=== PATIENT | male | born 1995 | race Caucasian/White ===

== ENCOUNTER 2020-12-06 13:16 | Outpatient (CLI) | payer BC, SELFPAY ==
--- NOTE | 2020-12-06 13:40 | MR_ITS ---
WS: [id number] MRI LEFT KNEE NONCONTRAST TECHNIQUE: Axial PD, coronal PD fat sat, coronal PD, sagittal PD, and sagittal PD fat-sat images obta ined. CLINICAL INFORMATION: LEFT KNEE PAIN/LEFT KNEE EFFUSION COMPARISON: None. FINDINGS: Distal quadriceps and patella tendons are intact. Hypertrophic patella. High-grade complete tear of t he anterior cruciate ligament. No normal fibers visualized. Normal posterior cruciate ligament. Diffu se edema consistent with contusion involving the posterior medial and posterior lateral tibial platea u. Normal lateral meniscus. Tiny horizontal tear involving the posterior horn medial meniscus extendi ng to the articular surface. Additional chronic intrasubstance signal abnormality in the posterior ho rn medial meniscus. Medial and lateral collateral ligaments are intact. Normal bone marrow signal in the femoral condyles . Lobulated popliteal cyst measuring 1.3 x 3.3 CM. This extends approximately 6 cm craniocaudal. Mild chondromalacia patella. No subchondral edema. Normal medial and lateral patellar retinaculum. MR/MR knee LT wo con* [id number] IMPRESSION: 1. High-grade complete tear involving the anterior cruciate ligament. No kang l fibers visualized. 2. Normal PCL. 3. Diffuse edema consistent with contusion involving the posterior medial and lateral tibial plateau. 4. Tiny horizontal tear involving the posterior horn medial meniscus extending to the articular surface. Additional chronic signal abnormality involving the posterior horn medial meniscus. Normal lateral meniscus. 5. Mild chondromalacia patella. 6. Lobulated popliteal cyst as described above. 7. Medial and lateral collateral ligaments are intact.
== END 2020-12-06 13:17 | disposition home or self-care (01) ==
LOC: RADWPI 13:33
PROVIDERS: Visit Provider Emergency Medicine
DX: M25.562 Pain in left knee (principal); M25.462 Effusion, left knee; M71.22 Synovial cyst of popliteal space [Baker], left knee; M22.42 Chondromalacia patellae, left knee; S83.242A Other tear of medial meniscus, current injury, left knee, initial encounter; S83.512A Sprain of anterior cruciate ligament of left knee, initial encounter; X58.XXXA Exposure to other specified factors, initial encounter; R60.0 Localized edema
CPT/HCPCS: 73721